=== PATIENT | male | born 1965 | race African-American/Black ===

== ENCOUNTER 2020-01-20 11:27 | Emergency (ER) | payer SELFPAY ==
[~2020-01-20] VITALS: Ht 175.3 cm; Wt 77.0 kg
[~2020-01-20 11:27] MED LIST: NOCURR
[2020-01-20] MEDS ORDERED: IBUP-2070 PO (11:29)
[2020-01-20 11:31] VITALS: BP 129/74
[2020-01-20] MEDS ORDERED: IBUPROFEN 600 MG TABLET PO ONE (12:15)
== END 2020-01-20 13:50 | disposition home or self-care (01) ==
LOC: EMS 11:30
DX: S86.012A Strain of left Achilles tendon, initial encounter (principal); F17.210 Nicotine dependence, cigarettes, uncomplicated; Z79.899 Other long term (current) drug therapy; X50.9XXA Other and unspecified overexertion or strenuous movements or postures, initial encounter; Y93.89 Activity, other specified; Y92.89 Other specified places as the place of occurrence of the external cause; Y99.8 Other external cause status